=== PATIENT | female | born 1985 | race African-American/Black ===

== ENCOUNTER 2016-06-13 15:00 | Emergency (ER) ==
[2016-06-13 15:06] VITALS: BP 159/85
[2016-06-13] MEDS ORDERED: SOLU-MEDROL IM ONE (15:22)
[2016-06-13] MEDS ORDERED: TYLENOL WITH CODEINE #3 PO ONE (15:22)
--- NOTE | 2016-06-13 15:23 | PROVIDER DOCUMENTATION ---
HPI-General Adult - General Chief Complaint: Cold Symptoms Stated Complaint: COLD SX Time Seen by Provider: 06/13/16 15:12 Source: patient Allergies/Adverse Reactions: Patient Allergies Allergy/AdvReac Type Severity Reaction Status Date / Time No Known Allergies Allergy Verified 06/13/16 15:06 Home Medications: Home Medication List Medication Instructions Recorded Confirmed Last Taken Type Indapamide 2.5 mg PO DAILY 06/13/16 06/13/16 06/13/16 History Lisinopril/Hydrochlorothiazide 20 mg PO DAILY 06/13/16 06/13/16 06/13/16 History [Lisinopril-Hctz 20-12.5 mg Tab] - History of Present Illness -Gen Adult Nature of Presenting Problems: Pt is a 31 yof that presents to er with cc of cough productive with sneezing and sinus congestion. was seen 8 days ago dx with strep throat reports was given a shot and states shot made cough worse and still not feeling well. Location of Pain/Injury: reports: generalized Quality of Pain: reports: aching Severity: reports: moderate Onset/Duration: reports: unsure Timing: reports: still present Associated Symptoms: reports: EENT symptoms Similar Symptoms Previously?: Yes Recently seen or treated by another doctor?: Yes Review of Systems - Adult - REVIEW OF SYSTEMS - ADULT Constitutional: reports: fatique. denies: chills, fever Eyes: reports: no symptoms reported Ears, Nose, Mouth & Throat: reports: sinus problem. denies: ear pain, throat pain Cardiovascular: denies: chest pain, irregular heart rate, orthopnea Respiratory: reports: cough. denies: pleurisy, shortness of breath, wheezing Gastrointestinal: denies: abdominal pain, diarrhea, nausea, vomiting Genitourinary: reports: no symptoms reported Musculoskeletal: reports: no symptoms reported Integumentary: reports: no symptoms reported Neurological: reports: no symptoms reported Psychiatric: reports: no symptoms reported Endocrine: reports: no symptoms reported Hematologic/Lymphatic: reports: no symptoms reported Allergic/Immunologic: reports: no symptoms reported All Other Systems: Reviewed and Negative Past History - Adult - PAST MEDICAL HISTORY-ADULT Review of Records: reports: Nursing Assessment Review Major Childhood Illnesses: reports: denies history Cardiovascular: reports: HTN Respiratory: reports: denies history Gastrointestinal: reports: denies history Obstetrical/Gynecological: reports: denies history Genitourinary: reports: denies history Musculoskeletal: reports: denies history Neurological: reports: denies history Endocrine/Immune: reports: denies history Other Conditions: reports: denies history - IMMUNIZATION STATUS Childhood Immunizations: See Nurse Assessment Flu Vaccine: See Nurse Assessment - FAMILY HISTORY Family History: reviewed, not pertinent - SOCIAL HISTORY Smoking: denies Substance Use: none/never Physical Exam-General - PHYSICAL EXAM-ADULT Initial Vital Signs Reviewed: Yes - CONSTITUTIONAL General Appearance: appears well, alert, no apparent distress, obese - EYES Eyes: PERRL/EOMI - NECK Neck: non-tender, full range of motion, supple, normal inspection - RESPIRATORY Respiratory: chest non-tender, lungs clear, normal breath sounds, no pleuratic chest pain, no respiratory distress, no accessory muscle use - CARDIOVASCULAR Cardiovascular: tachycardia - GASTROINTESTINAL (ABDOMEN) Abdominal Exam: normal bowel sounds, non tender, soft, no organomegaly, no pulsatile mass - MUSCULOSKELETAL Extremity: normal range of motion, non-tender - SKIN Integumentary: normal color, normal turgor, warm/dry - PSYCHIATRIC Psych/Mental Status: normal mood/affect, normal thought content, normal thought process, oriented x 3 Progress - PLAN OF CARE/RESULTS Progress/Plan/Lab Results: Orders Category Date Time Status CHEST-2 VIEWS [RAD] Stat Exams 06/13/16 15:12 Ordered Vital Signs - 24 hr 06/13/16 15:03 Temperature 98.8 F Pulse Rate 102 H Respiratory 18 Rate Blood Pressure 159/85 O2 Sat by Pulse 97 Oximetry - XRAY 1 XRAY: Bilateral XRAY Study: Chest Impression: Abnormal (questionable tiny patchy infiltrates) Departure - Departure Time of Disposition Order: 16:10 DIAGNOSIS: Pneumonia Qualifiers: Pneumonia type: due to unspecified organism Laterality: unspecified laterality Lung location: unspecified part of lung Qualified Code(s): J18.9 - Pneumonia, unspecified organism Disposition: HOME 01 Certified Medical Emergency: Emergent Condition: Stable Additional Instructions: Follow up with pcp ED Follow Up Instructions: You have been treated by a care provider in the Emergency Department. These instructions are being provided to you so you can have an understanding of how to care for yourself upon discharge. Upon discharge from the Emergency Department, you are responsible for making arrangements for follow-up care by a physician of your choice. Take all prescribed medications as directed. Return to the Emergency Department immediately for any new or worsening symptoms. You may call the Physician Referral phone number at [phone] to obtain a list of Physicians who are taking new patients. Attestation - Scribe Verification/Attestation Scribe:: Deepti Childs Acting as Scribe for:: Fletcher Torres Scribe documention review:: This chart was documented by a scribe and accurately reflects the service the provider performed and the decisions made by the provider. Physician Attestation - Physician Attestation I, the provider, attest to the following statement:: Fletcher Torres Physician documentation Attestation:: This documentation recorded by the scribe accurately reflects the service I personally performed and the decisions made by me.
--- NOTE | 2016-06-13 15:39 | Diag Imaging Result Document ---
PROCEDURE NAME: CHEST-2 VIEWS - 06/13/2016 FRONTAL AND LATERAL CHEST, TWO VIEWS: COMPARISON: No comparison films. FINDINGS: The lungs are well expanded. The heart is not enlarged. The vessels are not distended. No consolidation. No pleural effusions. Questionable tiny patchy infiltrates. No consolidation. IMPRESSION: Questionable tiny patchy infiltrates.
[2016-06-13] MEDS ORDERED: LEVAQUIN PO ONE (16:09)
== END 2016-06-13 16:30 | disposition home or self-care (01) ==
LOC: P.ED 15:00
DX: J18.9 Pneumonia, unspecified organism (principal); R05 Cough; R06.7 Sneezing; R09.81 Nasal congestion; R53.83 Other fatigue; I10 Essential (primary) hypertension; Z79.899 Other long term (current) drug therapy
CPT/HCPCS: 71020; 96372; J2930